=== PATIENT | male | born 1985 | race Caucasian/White ===

== ENCOUNTER 2022-10-29 08:48 | Emergency (ER) | payer BC, SELFPAY ==
--- NOTE | ~2022-10-29 | XR_ITS ---
EXAMINATION: XR chest 2V 10/29/2022 09:58 INDICATION: Cough and congestion PROCEDURE: 2 view chest COMPARISON: No prior studies for comparison. FINDINGS: The lungs are clear. The cardiomediastinal silhouette is within normal limits. There are no pleural effusions. There is no pneumothorax suspected. IMPRESSION: 1: NO ACUTE CARDIOPULMONARY DISEASE. Reviewed, dictated and finalized at location B.
[2022-10-29 08:58] VITALS: BP 104/74; PULSE 80; RESP 20; TEMP 36.6; O2SAT 100
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
== END 2022-10-29 10:35 | disposition home or self-care (01) ==
PROVIDERS: Emergency Provider Nurse Practitioner Family
DX: J40 Bronchitis, not specified as acute or chronic (principal); J32.9 Chronic sinusitis, unspecified
CPT/HCPCS: 71046; 99213; G0463

== ENCOUNTER 2024-05-21 08:55 | Emergency (ER) | payer SELFPAY ==
[2024-05-21 09:02] VITALS: BP 127/66; PULSE 88; RESP 20; TEMP 36.8; O2SAT 98
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
== END 2024-05-21 09:43 | disposition home or self-care (01) ==
PROVIDERS: Emergency Provider Registered Nurse
DX: H66.92 Otitis media, unspecified, left ear (principal); J32.9 Chronic sinusitis, unspecified; R05.1 Acute cough; F17.210 Nicotine dependence, cigarettes, uncomplicated
CPT/HCPCS: 99213; G0463

== ENCOUNTER 2024-06-25 12:37 | Emergency (ER) | payer SELFPAY ==
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
[2024-06-25 12:47] VITALS: BP 110/78; PULSE 71; RESP 16; O2SAT 100
== END 2024-06-25 13:13 | disposition home or self-care (01) ==
PROVIDERS: Emergency Provider Nurse Practitioner
DX: J01.90 Acute sinusitis, unspecified (principal); F17.210 Nicotine dependence, cigarettes, uncomplicated; F12.90 Cannabis use, unspecified, uncomplicated
CPT/HCPCS: 99213; G0463

== ENCOUNTER 2024-08-17 08:20 | Emergency (ER) | payer SELFPAY ==
[2024-08-17 08:24] VITALS: BP 132/86; PULSE 74; RESP 18; TEMP 36.3; O2SAT 100
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
== END 2024-08-17 08:54 | disposition home or self-care (01) ==
PROVIDERS: Emergency Provider Nurse Practitioner Family
DX: H65.02 Acute serous otitis media, left ear (principal); F17.210 Nicotine dependence, cigarettes, uncomplicated
CPT/HCPCS: 99213; G0463